=== PATIENT | male | born 1965 | race Caucasian/White ===

== ENCOUNTER 2020-07-20 18:39 | Emergency (ER) | payer SELFPAY ==
[~2020-07-20] VITALS: Ht 188 cm; Wt 82.0 kg
[2020-07-20 22:01] VITALS: BP 118/55
== END 2020-07-20 23:12 | disposition home or self-care (01) | DRG 563 ==
LOC: ED 18:39
PROC: 0RSKXZZ Reposition Left Shoulder Joint, External Approach (ICD-10-PCS; principal; 2020-07-20)
DX: S43.315A Dislocation of left scapula, initial encounter (principal); F17.210 Nicotine dependence, cigarettes, uncomplicated; X50.0XXA Overexertion from strenuous movement or load, initial encounter